=== PATIENT | female | born 1975 | race Two or more races ===

== ENCOUNTER 2018-02-19 09:54 | Outpatient (CLI) | payer OTHER | END 2018-02-19 10:11 | disposition home or self-care (01) | LOC: SONOGRAMA 09:54 | DX: N84.1 Polyp of cervix uteri (principal); N92.1 Excessive and frequent menstruation with irregular cycle ==

== ENCOUNTER 2018-05-26 06:50 | Day surgery (SDC) | payer OTHER ==
[2018-05-26] MEDS ORDERED: PERCOCET 5-3251 EACH PO (14:30)
== END 2018-05-26 16:00 | disposition home or self-care (01) ==
LOC: CIR.AMB 06:50
DX: N84.0 Polyp of corpus uteri (principal)